=== PATIENT | female | born 1995 | race Caucasian/White ===

== ENCOUNTER 2018-08-10 08:20 | Day surgery (SDC) | payer OTHER ==
[2018-08-07 13:34] LABS: HEMATOCRIT 40.6 % (36.0-47.0); HEMOGLOBIN 14.1 g/dL (12.0-15.5); MEAN CORPUSCULAR HEMOGLOBIN 30.5 pg (27.0-33.4); MEAN CORPUSCULAR HGB CONC 34.7 g/dL (32.0-36.0); MEAN CORPUSCULAR VOLUME 88 fl (80-97); PLATELET COUNT 335 10^3/uL (150-450); RED BLOOD COUNT 4.61 10^6/uL (3.72-5.28)
[2018-08-07 13:45] LABS: APPEARANCE,URINE CLEAR; BILIRUBIN,URINE NEGATIVE (NEGATIVE); COLOR,URINE COLORLESS; GLUCOSE, URINE NEGATIVE (NEGATIVE); KETONES,URINE NEGATIVE (NEGATIVE); LEUKOCYTE ESTERASE,URINE NEGATIVE (NEGATIVE); NITRITE,URINE NEGATIVE (NEGATIVE); PROTEIN,URINE NEGATIVE (NEGATIVE); URINE SPECIFIC GRAVITY 1.004; UROBILINOGEN,URINE NEGATIVE mg/dL (<2.0)
[2018-08-07 14:06] LABS: ANION GAP 13 (5-19); BLOOD UREA NITROGEN 15 mg/dL (7-20); CALCIUM 10.4 mg/dL (8.4-10.2); CARBON DIOXIDE 27 mmol/L (22-30); CHLORIDE 101 mmol/L (98-107); GLUCOSE 85 mg/dL (75-110); POTASSIUM 4.2 mmol/L (3.6-5.0); SODIUM 140.5 mmol/L (137-145)
[~2018-08-10 08:20] MED LIST: CEFAZOLIN 2 GM/D5W RTU 2 GM/50 ML RTUPB IV PRN; GABAPENTIN 300 MG CAPSULE PO PRN; LACTATED RINGERS 1000 ML IV PRN; LIDOCAINE 0.5% INJ-PF (5 MG/ML) 50 ML SDV SUBCUT PRN
[2018-08-10] MEDS ORDERED: BUPIVACAINE HCL 0.25 % INJ/PF (2.5 MG/1 ML) 30 ML VIAL ONE (08:56)
[2018-08-10] MEDS ORDERED: CEFAZOLIN 2 GM/D5W RTU 0 GM/0 ML RTUPB IV ONE (09:25)
[2018-08-10] MEDS ORDERED: GABAPENTIN 300 MG CAPSULE ONE (09:25)
[2018-08-10] MEDS ORDERED: SCOPOLAMINE HYDROBROMIDE 1.5 MG PATCH.TD72 ONE (09:26)
[2018-08-10] MEDS ORDERED: CLINDAMYCIN 900 MG/D5W RTU 900 MG/50 ML RTUPB IV PRN (09:40)
[2018-08-10] MEDS ORDERED: GENTAMICIN SULFATE 110 MG in DEXTROSE 5%-WATER 100 ML IV PRN (09:41)
[2018-08-10] MEDS ORDERED: CLINDAMYCIN 900 MG/D5W RTU 900 MG/50 ML RTUPB IV ONE (10:14)
[2018-08-10] MEDS ORDERED: FENTANYL CITRATE INJ/PF 100 MCG/2 ML AMPUL ONE (10:33)
[2018-08-10] MEDS ORDERED: PROPOFOL INJ 200 MG/20 ML VIAL IV ONE (10:33)
[2018-08-10] MEDS ORDERED: MIDAZOLAM 2 MG/2 ML INJ ONE (10:33)
[2018-08-10] MEDS ORDERED: HYDROMORPHONE HCL INJ/PF 2 MG/ML AMPULE ONE (10:33)
[2018-08-10] MEDS ORDERED: ACETAMINOPHEN 1,000 MG/100 ML RTUPB IV ONE (10:33)
[2018-08-10] MEDS ORDERED: LIDOCAINE 1%/EPINEPHRINE INJ 20 ML VIAL ONE (10:37)
[2018-08-10] MEDS ORDERED: ROCURONIUM BROMIDE INJ 50 MG/5 ML VIAL IV ONE (11:36)
[2018-08-10] MEDS ORDERED: KETOROLAC TROMETHAMINE 60 MG/2 ML SDV ONE (11:36)
[2018-08-10] MEDS ORDERED: ONDANSETRON HCL INJ/PF 4 MG/2 ML SDV ONE (11:36)
[2018-08-10] MEDS ORDERED: SUCCINYLCHOLINE CHLORIDE INJ 200 MG/10 ML VIAL ONE (11:36)
[2018-08-10] MEDS ORDERED: NEOSTIGMINE METHYLSULFATE 10 MG/10 ML VIAL ONE (11:36)
[2018-08-10] MEDS ORDERED: GLYCOPYRROLATE 1 MG/5 ML SYRINGE ONE (11:36)
[2018-08-10] MEDS ORDERED: DEXAMETHASONE SOD PHOSPHATE INJ 4 MG/1 ML VIAL ONE (11:36)
[2018-08-10] MEDS ORDERED: MEPERIDINE HCL/PF INJ 25 MG/1 ML DISP.SYRIN IV PRN (13:30)
[2018-08-10] MEDS ORDERED: OXYCODONE-ACETAMINOPHEN 5-325 MG TABLET PO PRN ×3 (13:30→14:01)
[2018-08-10] MEDS ORDERED: FENTANYL CITRATE INJ/PF 100 MCG/2 ML AMPUL IV PRN ×3 (13:30)
[2018-08-10] MEDS ORDERED: PROMETHAZINE HCL INJ 25 MG/1 ML VIAL IV PRN (13:30)
[2018-08-10] MEDS ORDERED: DIPHENHYDRAMINE HCL 50 MG/ML VIAL IV PRN (13:30)
[2018-08-10] MEDS ORDERED: MORPHINE SULFATE 10 MG/ML INJ IV PRN (13:30)
[2018-08-10] MEDS ORDERED: ONDANSETRON HCL INJ/PF 4 MG/2 ML SDV IV PRN ×2 (13:30→14:01)
--- NOTE | 2018-08-10 16:29 | Discharge Summary ---
Discharge Summary (SDC) - Discharge Final Diagnosis: Pelvic pain Endometriosis Date of Surgery: 08/10/18 Discharge Date: 08/10/18 Condition: Good Forms: Post Operative Treatment or Instructions: Robotic assisted laparoscopic fulgeration of endometriosis Removal of Nexplanon Pap smear screening Insertion of IUD Prescriptions: Acetaminophen [Tylenol Extra Strength 500 mg Tablet] 1 tab PO Q8 PRN #60 tab PRN Reason: Pain Scale Of 3 Ibuprofen [Motrin 800 mg Tablet] 800 mg PO Q8H PRN #30 tab PRN Reason: Oxycodone HCl [Roxicodone] 5 mg PO Q4H PRN #20 tablet PRN Reason: Pain Scale Of 4 Referrals: KRISTEN LONG MD [NO LOCAL MD] - (Call DATABASE ENGINEER Nurse at [phone] or [phone] for questions. Please call Mrs. Grady to schedule a follow up at [phone] ) Discharge Diet: As Tolerated Respiratory Treatments at Home: Deep Breathing/Coughing Discharge Activity: Activity As Tolerated, Balance Activity w/Rest, Pelvic Rest, Slowly Increase Activity Home Care Assistance: None Needed Report the Following to Your Physician Immediately: Vomiting, Increase in Pain, Fever over 101 Degrees, Unusual Bleeding, Redness, Swelling, Drainage-Foul Smelling, Increased Vaginal Bleed, Large Clots, IV Site Infection Signs, Urinary Infection Signs
[2018-08-10 17:26] VITALS: BP 102/61
--- NOTE | 2018-09-21 12:19 | OPERATIVE REPORT E ---
Operative Report NAME: CAROL BOYD : 1995 AGE: 22Y DATE OF SURGERY: 08/10/2018 ROOM: 211 PREOPERATIVE DIAGNOSIS: Pelvic pain, suspected recurrent endometriosis, desires Nexplanon removal and desires placement of Mirena while under anesthesia, due to cervical cytology Pap smear screening. POSTOPERATIVE DIAGNOSIS: Pelvic pain, suspected recurrent endometriosis, desires Nexplanon removal and desires placement of Mirena while under anesthesia, due to cervical cytology Pap smear screening. OPERATIONS: 1. Robotic-assisted laparoscopic fulguration of endometriosis of the uterus and bilateral deep pelvis and posterior cul-de-sac and the left ovary. 2. Nexplanon removal. 3. Mirena placement. 4. Pap smear. SURGEON: KRISTEN LONG M.D. ANESTHESIA: General. COMPLICATIONS: None. ESTIMATED BLOOD LOSS: 50 mL. URINE OUTPUT: Clear at the end of the procedure. SPECIMENS: None. FINDINGS: Normal-sized uterus with posterior cul-de-sac adhesive disease and scarring from evidence of multiple stages of endometriosis, most notably in the area posterior to the left ovary, also with endometriosis on the surface of the left ovary, endometriosis of bilateral uterosacral ligaments. INDICATIONS: This is a female patient with a history of abdominal and pelvic pain, cyclic in nature, and dyspareunia. After discussing the risks, benefits, and alternatives, including but not limited to observation, further medical management, pain management, open abdominal surgery were all discussed with her and she elected for the above procedure. DESCRIPTION OF PROCEDURE: After the patient was consented, she was taken to the operating room where general anesthesia was found to be adequate. She was transferred to a dorsal lithotomy position using adjustable Jere stirrups, prepped and draped in the usual sterile fashion. Surgical timeout was held. Oconnor catheter was placed in the bladder. At this point, my attention was turned to the patient's left upper medial arm where the area of the Nexplanon was identified. Incision was made with a scalpel over the Nexplanon device approximately 3 mm in length. The device was then visualized and grasped with the hemostat and removed intact. The incision was closed with Dermabond. Hemostasis was excellent and no extensive bruising was noted. Next, attention was turned vaginally where a [employer] uterine manipulator was placed and a Pap smear was collected. At this point, attention was turned to the abdomen where 0.25% plain Marcaine local anesthetic was used to initiate local anesthesia at the umbilical area and then a 12 mm skin incision was made with the scalpel followed by Veress needle placement into the peritoneal cavity with a drop in CO2 pressure to 0 mmHg. Pneumoperitoneum was established to 15 mmHg. Then, the 12 mm bladeless trocar was advanced into the pneumoperitoneum and immediate visualization with the camera demonstrated an atraumatic entry. She was placed in a slight T-tom and then we subsequently placed 2 right and 1 left lateral 8 mm port following the typical routine of local anesthetic followed by skin incision and placement of the port under direct visualization. Once the ports were in place, the patient was put in steep Trendelenburg. The robot was docked and instruments were placed into the robotic arms. At that time, I scrubbed out to see the robotic console. Pelvic anatomy was inspected and the findings were noted above. The ureters were identified by peristalsis in their usual course at the pelvic brim bilaterally. The fenestrated bipolar grasper and the monopolar scissors were used to free adhesions of the left ovary from the left inferior pelvic sidewall. This uncovered a great area of dense adhesions, scarring, and active endometriosis implants in the left lower pelvis. All of the active lesions were then fulgurated. Scar tissue was dissected and freed along the left lower pelvis as well as the posterior inferior side of the ovary was also freed from adhesions to the pelvic sidewall. The inspection of the left fallopian tube appeared normal. There were mild adhesions, which were also freed near the lateral portion of the fimbria. However, the tube did not look distended. The medial surface of the left ovary had active powder burn lesions approximately 1 cm in size. This was fulgurated as well. Then, attention was turned to the central and right portions of the posterior cul-de-sac, which had multiple active endometriosis implants, at least 12 less than 5 mm size implants. These were all fulgurated. Again, there was adhesive disease in the right posterior cul-de-sac, which was freed carefully keeping the ureters in view. The right ovary appeared normal. The uterosacral ligaments were identified and also had areas of endometriosis on them. These spots were fulgurated. Finally, the entire pelvis was copiously irrigated. All apparent endometriosis implants, pustules, and powder burn type lesions were found to be fulgurized and as much scar tissue that could be freed up had been done. Small areas of peritoneal windows that had been identified had also been opened and fulgurated where applicable. At this point, the abdomen was deflated and the robot was undocked and all instruments were removed. Next, the patient was taken out of Trendelenburg and attention was turned to the incisions. The 12 mm incision fascia was closed with 0 Vicryl in a [id number] fashion and the skin of all the abdominal incisions was closed with 4-0 Monocryl in a subcuticular fashion and a Dermabond dressing was applied. Finally, attention was turned to remove the Oconnor catheter from the bladder. The [place] manipulator was removed and a Mirena IUD was placed in the usual fashion, first some in the uterus and then placement of the device. Placement was uncomplicated and finished without any resistance upon insertion. Hemostasis from the [place] site appeared to be excellent. Anesthesia was then reversed. Sponge, lap, and needle counts were correct at the end of the procedure, and the patient was taken to the PACU in stable condition. DICTATING PHYSICIAN: KRISTEN LONG M.D. [id number] PHY#: [id number] ID: [id number] JOB#: [id number] ACCT: [id number] cc:KRISTEN LONG M.D. >
== END 2018-08-10 19:40 | disposition home or self-care (01) ==
LOC: OROUT 08:20 → 2N 14:25 → OROUT 19:40
PROVIDERS: ATTEND Obstetrics & Gynecology
DX: Z30.49 Encounter for surveillance of other contraceptives (principal); Z30.430 Encounter for insertion of intrauterine contraceptive device; K66.0 Peritoneal adhesions (postprocedural) (postinfection); N80.1 Endometriosis of ovary; N80.3 Endometriosis of pelvic peritoneum; N80.0 Endometriosis of uterus; Z88.0 Allergy status to penicillin; Z88.2 Allergy status to sulfonamides
CPT/HCPCS: 11982; 58300; 58662; S2900; 36415; 80048; 81001; 81025; 840; 85027; 86850; 86900; 86901; 87491; 87591; 87624; 88142; J0131; J0330; J0690; J1100; J1170; J1580; J1885; J2250; J2405; J2704; J3010; J3490